=== PATIENT | male | born 1970 | race Caucasian/White ===

== ENCOUNTER 2021-02-08 23:38 | Emergency (ER) | payer OTHER ==
[~2021-02-08] VITALS: Ht 188 cm; Wt 106.8 kg
[2021-02-09] MEDS: ORPHENADRINE CITRATE 60 MG/2 ML VIAL. IV ONE (00:13)
[2021-02-09] MEDS: KETOROLAC 15 MG/ML VIAL. IVP ONE (00:14)
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
[2021-02-09] MEDS ORDERED: ORPH-16 PO (01:33)
[2021-02-09] MEDS ORDERED: OXYC1TAB15 PO (01:33)
[2021-02-09 01:39] VITALS: BP 133/72
[2021-02-09] MEDS: oxyCODONE/APAP 5/325 1 TAB TABLET PO ONE (01:41)
== END 2021-02-09 01:55 | disposition home or self-care (01) ==
LOC: ER 23:38
DX: S16.1XXA Strain of muscle, fascia and tendon at neck level, initial encounter (principal); M25.511 Pain in right shoulder; F17.200 Nicotine dependence, unspecified, uncomplicated; V98.8XXA Other specified transport accidents, initial encounter; Y93.89 Activity, other specified; Y92.89 Other specified places as the place of occurrence of the external cause; Y99.8 Other external cause status
CPT/HCPCS: 29105; 70450; 71045; 72125; 73030; 96374; 96375; 99284; J1885; J2360